=== PATIENT | male | born 1980 | race African-American/Black ===

== ENCOUNTER 2021-03-18 14:46 | Emergency (ER) | payer MEDICAID ==
[~2021-03-18] VITALS: Ht 180.3 cm; Wt 100.0 kg
[2021-03-18 14:50] VITALS: BP 199/137
== END 2021-03-18 18:10 | disposition home or self-care (01) ==
LOC: ER 14:46
DX: S02.69XB Fracture of mandible of other specified site, initial encounter for open fracture (principal); V58.4XXA Person boarding or alighting a pick-up truck or van injured in noncollision transport accident, initial encounter; Y93.89 Activity, other specified; Y92.89 Other specified places as the place of occurrence of the external cause; Y99.8 Other external cause status
CPT/HCPCS: 99281